=== PATIENT | male | born 1970 | race American Indian/Alaskan Native ===

== ENCOUNTER 2017-03-20 11:45 | Emergency (ER) | payer SELFPAY ==
[2017-03-20 12:00] VITALS: BP 122/84
[2017-03-20] MEDS ORDERED: PROTONIX PO ONE (12:07)
--- NOTE | 2017-03-20 12:11 | Emergency Department Report ---
Chief Complaint: Abdominal Pain Stated Complaint: ABD PAIN Time Seen by Provider: 03/20/17 12:00 - HPI History of Present Illness: drinks drank a lot yest d/t day and in fam now epigastric pain has has before alkaselzer at home no relief diarrhea no n/v/fever no home rx no pcp hand surgery vss nad ro pancreatitis - Exam Vital Signs: Vital Signs 03/20/17 11:55 Temperature 98.2 F Pulse Rate 74 Respiratory 18 Rate Blood Pressure 122/84 O2 Sat by Pulse 97 Oximetry MSE screening note: Focused history and physical exam performed. Due to findings the following was ordered: ED Disposition for MSE Condition: Stable
[2017-03-20 12:31] LABS: Basophils % (Auto) 0.3 % (0.0-1.8); Eosinophils % (Auto) 1.2 % (0.0-4.3); Hematocrit 45.1 % (35.5-45.6); Hemoglobin 15.3 gm/dl (11.8-15.2); Mean Corpuscular HGB Conc 34 % (32-34); Mean Corpuscular Hemoglobin 31 pg (28-32); Mean Corpuscular Volume 91 fl (84-94); Platelet Count 251 K/mm3 (140-440); Red Blood Count 4.94 M/mm3 (3.65-5.03); Red Cell Distribution Width 13.6 % (13.2-15.2); White Blood Count 7.4 K/mm3 (4.5-11.0)
[2017-03-20 13:45] LABS: Alanine Aminotransferase 59 units/L (7-56); Albumin 4.2 g/dL (3.9-5); Albumin/Globulin Ratio 1.3 %; Alkaline Phosphatase 65 units/L (35-129); Amylase 59 units/L (27-131); Anion Gap 17 mmol/L; Blood Urea Nitrogen 14 mg/dL (9-20); Calcium 9.2 mg/dL (8.4-10.2); Carbon Dioxide 25 mmol/L (22-30); Chloride 99.6 mmol/L (98-107); Glucose 136 mg/dL (75-100); Lipase 20 units/L (13-60); Potassium 4.3 mmol/L (3.6-5.0); Sodium 137 mmol/L (137-145); Total Protein 7.4 g/dL (6.3-8.2)
[2017-03-20 13:53] LABS: Bilirubin,Direct < 0.2 mg/dL (0-0.2)
[2017-03-20 14:45] LABS: Bilirubin,Indirect 0.2 mg/dL
--- NOTE | 2017-03-20 14:47 | XRay Report ---
Chest 2 views: History: Pain evaluate for free air. Findings: Heart size is upper normal. Trachea is midline. No consolidation, pneumothorax or pleural effusion. Impression: No acute cardiopulmonary findings.
[2017-03-20] MEDS ORDERED: ALUM-MAG HYDROX-SIMETH 200-200-20MG/5ML PO ONE (15:50)
[2017-03-20] MEDS ORDERED: ZOFRAN ORAL LIQ PO ONE (15:50)
[2017-03-20] MEDS ORDERED: LIDOCAINE VISCOUS 2% PO ONE (15:50)
--- NOTE | 2017-03-20 15:51 | Emergency Department Report ---
ED Abdominal Pain HPI - General Chief Complaint: Abdominal Pain Stated Complaint: ABD PAIN Time Seen by Provider: 03/20/17 15:49 Source: patient Mode of arrival: Ambulatory Limitations: No Limitations - History of Present Illness -: Gradual Location: epigastric Radiation: none Migration to: no migration Quality: burning Consistency: intermittent Improves With: nothing Worsens With: other (alcohol) Context: other (binge drinking yest) - Related Data Previous Rx's Medication Instructions Recorded Last Taken Type Pantoprazole [Protonix] 40 mg PO QDAY #30 tablet 03/20/17 Unknown Rx Allergies Allergy/AdvReac Type Severity Reaction Status Date / Time Sulfa (Sulfonamide Allergy Rash Verified 03/20/17 11:55 Antibiotics) ED Review of Systems ROS: Stated complaint: ABD PAIN Other details as noted in HPI Comment: All other systems reviewed and negative Constitutional: no symptoms reported Eyes: as per HPI ENT: as per HPI Respiratory: no symptoms reported Cardiovascular: as per HPI Endocrine: no symptoms reported Gastrointestinal: as per HPI, nausea. denies: abdominal pain, vomiting, diarrhea, constipation, hematemesis, melena Genitourinary: as per HPI Musculoskeletal: as per HPI Skin: as per HPI Neurological: as per HPI Psychiatric: as per HPI Hematological/Lymphatic: as per HPI ED Past Medical Hx - Past Medical History Additional medical history: High cholesterol - Surgical History Past Surgical History?: Yes Additional Surgical History: right hand - Social History Smoking Status: Never Smoker Substance Use Type: Alcohol - Medications Home Medications: Home Medications Medication Instructions Recorded Confirmed Last Taken Type Pantoprazole [Protonix] 40 mg PO QDAY #30 tablet 03/20/17 Unknown Rx ED Physical Exam - General Limitations: No Limitations General appearance: alert - Head Head exam: Present: atraumatic - Eye Eye exam: Present: normal appearance - ENT ENT exam: Present: normal exam - Neck Neck exam: Present: normal inspection - Respiratory Respiratory exam: Present: normal lung sounds bilaterally - Cardiovascular Cardiovascular Exam: Present: regular rate - GI/Abdominal GI/Abdominal exam: Present: soft, normal bowel sounds. Absent: distended, tenderness, guarding, rebound, rigid, diminished bowel sounds, hyperactive bowel sounds, hypoactive bowel sounds, organomegaly, mass, bruit, pulsatile mass , hernia - Rectal Rectal exam: Present: deferred - Extremities Exam Extremities exam: Present: normal inspection - Back Exam Back exam: Present: normal inspection - Neurological Exam Neurological exam: Present: alert, altered, oriented X3 - Psychiatric Psychiatric exam: Present: normal affect, normal mood - Skin Skin exam: Present: warm, dry, intact, normal color. Absent: rash ED Course Vital Signs 03/20/17 11:55 Temperature 98.2 F Pulse Rate 74 Respiratory 18 Rate Blood Pressure 122/84 O2 Sat by Pulse 97 Oximetry - Reevaluation(s) Reevaluation #1: 03/20/17 16:07 [place] [facility] [place] noted medicated w relief long discussion about etoh, rx, and follow up w gi ED Medical Decision Making - Lab Data Result diagrams: 03/20/17 12:12 03/20/17 12:12 - Radiology Data Radiology results: report reviewed, image reviewed - Medical Decision Making labs noted xray noted medicated w gi cocktail w relief inc stress w in fam drank too much yest has had this before Critical care attestation.: If time is entered above; I have spent that time in minutes in the direct care of this critically ill patient, excluding procedure time. ED Disposition Clinical Impression: GERD (gastroesophageal reflux disease) Disposition: DISCHARGED TO HOME OR SELFCARE Is pt being admited?: No Does the pt Need Aspirin: No Condition: Stable Instructions: Diet for Ulcers and Gastritis (ED), Gastroesophageal Reflux Disease (ED) Additional Instructions: follow up GI as instructed today bland diet bananas rice applesauce toast decrease alcohol intake med as ordered today Prescriptions: Pantoprazole [Protonix] 40 mg PO QDAY #30 tablet Referrals: KELSI MELO MD [Staff Physician] - 3-5 Days Time of Disposition: 16:05
== END 2017-03-20 19:05 | disposition home or self-care (01) ==
LOC: ED 11:45
DX: K21.9 Gastro-esophageal reflux disease without esophagitis (principal); E78.00 Pure hypercholesterolemia, unspecified; Z88.2 Allergy status to sulfonamides
CPT/HCPCS: 36415; 71020; 80048; 80074; 82150; 83690; 85025; 99284; Q0162

== ENCOUNTER 2017-03-31 17:48 | Emergency (ER) | payer SELFPAY ==
--- NOTE | 2017-03-31 22:04 | Emergency Department Report ---
ED ENT HPI - General Chief complaint: Dental/Oral Stated complaint: TOOTHACHE,SWOLLEN JAW Time Seen by Provider: 03/31/17 21:41 Source: patient Mode of arrival: Ambulatory Limitations: No Limitations - History of Present Illness Initial comments: PT c/o toothache since yesterday. PT states he woke up this morning with R lower jaw swelling. PT states it has been years since last dental appointment. MD complaint: tooth pain Onset/Timin -: Gradual, days(s) Location: tooth # (28) 1 - pain Severity: severe Severity scale (0 -10): 10 Quality: other (throbbing ) Consistency: constant Improves with: none Worsens with: eating, other (palpation ) Context- Dental: history of dental caries, poor dental care - Related Data Previous Rx's Medication Instructions Recorded Last Taken Type Pantoprazole [Protonix] 40 mg PO QDAY #30 tablet 03/20/17 Unknown Rx Acetaminophen/Codeine [Tylenol #3] 1 tab PO Q6H PRN #12 tab 03/31/17 Unknown Rx Clindamycin [Clindamycin CAP] 300 mg PO Q8H #30 cap 03/31/17 Unknown Rx Allergies Allergy/AdvReac Type Severity Reaction Status Date / Time Sulfa (Sulfonamide Allergy Rash Verified 03/20/17 11:55 Antibiotics) ED Dental HPI - General Chief complaint: Dental/Oral Stated complaint: TOOTHACHE,SWOLLEN JAW Time Seen by Provider: 03/31/17 21:41 Source: patient Mode of arrival: Ambulatory Limitations: No Limitations - Related Data Previous Rx's Medication Instructions Recorded Last Taken Type Pantoprazole [Protonix] 40 mg PO QDAY #30 tablet 03/20/17 Unknown Rx Acetaminophen/Codeine [Tylenol #3] 1 tab PO Q6H PRN #12 tab 03/31/17 Unknown Rx Clindamycin [Clindamycin CAP] 300 mg PO Q8H #30 cap 03/31/17 Unknown Rx Allergies Allergy/AdvReac Type Severity Reaction Status Date / Time Sulfa (Sulfonamide Allergy Rash Verified 03/20/17 11:55 Antibiotics) ED Review of Systems ROS: Stated complaint: TOOTHACHE,SWOLLEN JAW Other details as noted in HPI Comment: All other systems reviewed and negative Constitutional: other (facial swelling ) ENT: dental pain Gastrointestinal: denies: nausea, vomiting Musculoskeletal: denies: back pain ED Past Medical Hx - Past Medical History Previous Medical History?: Yes Additional medical history: High cholesterol - Surgical History Past Surgical History?: Yes Additional Surgical History: right hand - Social History Smoking Status: Never Smoker Substance Use Type: None - Medications Home Medications: Home Medications Medication Instructions Recorded Confirmed Last Taken Type Pantoprazole [Protonix] 40 mg PO QDAY #30 tablet 03/20/17 Unknown Rx Acetaminophen/Codeine [Tylenol #3] 1 tab PO Q6H PRN #12 tab 03/31/17 Unknown Rx Clindamycin [Clindamycin CAP] 300 mg PO Q8H #30 cap 03/31/17 Unknown Rx ED Physical Exam - General Limitations: No Limitations General appearance: alert, in no apparent distress - Head Head exam: Present: atraumatic, normocephalic, other (swelling noted to R jaw ) - Eye Eye exam: Present: normal appearance, PERRL, EOMI. Absent: conjunctival injection - ENT ENT exam: Present: normal orophraynx, mucous membranes moist, TM's normal bilaterally, normal external ear exam - Expanded ENT Exam Expanded Mouth exam: Absent: drooling, trismus, muffled voice Teeth exam: Present: dental caries, dental tenderness # (28 and 29. pt with severe dental decay, + erythema and edema to gum line ), gingival enlargement 1 - Dental Tenderness 2 - Dental Tenderness Throat exam: Positive: normal inspection. Negative: tonsillar erythema, tonsillomegaly, tonsillar exudate, R peritonsillar mass, L peritonsillar mass - Neck Neck exam: Present: normal inspection, full ROM, lymphadenopathy - Respiratory Respiratory exam: Present: normal lung sounds bilaterally. Absent: respiratory distress - Cardiovascular Cardiovascular Exam: Present: regular rate, normal rhythm - Extremities Exam Extremities exam: Present: normal inspection, full ROM - Back Exam Back exam: Present: normal inspection, full ROM. Absent: tenderness, CVA tenderness (R), CVA tenderness (L) - Neurological Exam Neurological exam: Present: alert, oriented X3, normal gait - Psychiatric Psychiatric exam: Present: normal affect, normal mood - Skin Skin exam: Present: warm, dry, intact ED Course Vital Signs 03/31/17 19:10 Temperature 98.6 F Pulse Rate 65 Respiratory 18 Rate Blood Pressure 140/90 [Right] O2 Sat by Pulse 100 Oximetry - Reevaluation(s) Reevaluation #1: 03/31/17 22:08 PT aware of dx and plan of care. PT has no questions at this time. - Pulse Oximetry Interpretation Digit-Finger Initial Pulse Oximetry Readin Actions Taken: none ED Medical Decision Making - Differential Diagnosis toothache, dental abscess, Critical Care Time: No Critical care attestation.: If time is entered above; I have spent that time in minutes in the direct care of this critically ill patient, excluding procedure time. ED Disposition Clinical Impression: Dental abscess Disposition: DISCHARGED TO HOME OR SELFCARE Is pt being admited?: No Does the pt Need Aspirin: No Condition: Stable Instructions: Dental Abscess (ED), Toothache (ED) Additional Instructions: No driving or ETOH after taking Tylenol#3 follow up with a dentist early next week Follow up with pcp in 5-7 days for bp recheck Prescriptions: Acetaminophen/Codeine [Tylenol #3] 1 tab PO Q6H PRN #12 tab PRN Reason: Pain , Severe (7-10) Clindamycin [Clindamycin CAP] 300 mg PO Q8H #30 cap Referrals: PRIMARY CAREMD [Primary Care Provider] - 3-5 Days LY VALDIVIA MD [Staff Physician] - 3-5 Days [facility] [Outside] - 3-5 Days Time of Disposition: 22:10
[2017-03-31 23:48] VITALS: BP 132/90
== END 2017-03-31 22:20 | disposition home or self-care (01) ==
LOC: ED 17:48
DX: K04.7 Periapical abscess without sinus (principal); E78.00 Pure hypercholesterolemia, unspecified; Z88.2 Allergy status to sulfonamides
CPT/HCPCS: 99282